=== PATIENT | male | born 1995 | race Caucasian/White ===

== ENCOUNTER 2020-02-13 02:31 | Emergency (ER) | payer OTHER ==
[~2020-02-13] VITALS: Ht 182.9 cm; Wt 68.0 kg
[2020-02-13 02:32] VITALS: BP 123/82
[2020-02-13 02:34] VITALS: BP 123/82
--- NOTE | 2020-02-13 02:35 | NUR ---
BESS BLAKE to Chair C
--- NOTE | 2020-02-13 02:39 | NUR ---
see complete assessment.
--- NOTE | 2020-02-13 02:46 | NUR ---
Dr. Montelongo assessing pt.
--- NOTE | 2020-02-13 03:08 | NUR ---
PATIENT BIB [facility]. PATIENT EXAMINED BY DR. CONTI. PATIENT MEDICALLY CLEARED AND RELEASED IN CUSTODY IN STABLE CONDITION. ORIGINAL PRE-BOOK FORM GIVEN TO OFFICER [facility], #[id number].
== END 2020-02-13 03:08 | disposition home or self-care (01) ==
LOC: MED 02:31
DX: M25.522 Pain in left elbow (principal); F17.200 Nicotine dependence, unspecified, uncomplicated; F10.129 Alcohol abuse with intoxication, unspecified; Z02.89 Encounter for other administrative examinations; Z71.6 Tobacco abuse counseling; V49.9XXA Car occupant (driver) (passenger) injured in unspecified traffic accident, initial encounter; Y93.89 Activity, other specified; Y92.89 Other specified places as the place of occurrence of the external cause; Y99.8 Other external cause status; Y90.9 Presence of alcohol in blood, level not specified
CPT/HCPCS: 99283